=== PATIENT | male | born 1990 | race African-American/Black ===

== ENCOUNTER 2017-02-26 17:51 | Emergency (ER) | payer SELFPAY | END 2017-02-26 18:40 | disposition left against medical advice (07) | LOC: ERS 17:51 | DX: Z53.21 Procedure and treatment not carried out due to patient leaving prior to being seen by health care provider (principal) ==

== ENCOUNTER 2017-02-26 18:42 | Emergency (ER) | payer SELFPAY ==
[2017-02-26] MEDS ORDERED: Ibuprofen 200 MG TAB ONE (18:57)
== END 2017-02-26 18:50 | disposition home or self-care (01) ==
LOC: SCSER 18:42
DX: K08.89 Other specified disorders of teeth and supporting structures (principal); E66.9 Obesity, unspecified; F17.210 Nicotine dependence, cigarettes, uncomplicated; J45.909 Unspecified asthma, uncomplicated
CPT/HCPCS: 99282

== ENCOUNTER 2017-03-26 05:58 | Emergency (ER) | payer SELFPAY ==
[2017-03-26] MEDS ORDERED: Ibuprofen 200 MG TAB ONE (06:13)
== END 2017-03-26 06:23 | disposition home or self-care (01) ==
LOC: SCSER 05:58
DX: K08.89 Other specified disorders of teeth and supporting structures (principal); J45.909 Unspecified asthma, uncomplicated; F17.210 Nicotine dependence, cigarettes, uncomplicated
CPT/HCPCS: 99282

== ENCOUNTER 2018-02-20 03:40 | Inpatient (IN) | payer SELFPAY ==
[2018-02-20] MEDS ORDERED: Lidocaine 1% (PF) 30 ML VIAL ONE (03:48)
[2018-02-20] MEDS ORDERED: Adacel (T-DAP) 0.5 ML VIAL ONE (03:51)
[2018-02-20] MEDS ORDERED: Midazolam HCl 2 mg/2 ml Vial ONE ×2 (03:51→05:31)
[2018-02-20] MEDS ORDERED: Ketorolac Tromethamine 30 MG/ML VIAL ONE ×2 (03:51→12:14)
[2018-02-20] MEDS ORDERED: CEFAZOLIN 1 GM VIAL ONE (04:12)
[2018-02-20 05:02] LABS: #Basophils 0.1 thou/uL (0.0-0.2); #Eosinphils 0.1 thou/uL (0.0-0.7); #Lymphocytes 1.9 thou/uL (1.20-3.40); #Monocytes 0.7 thou/uL (0.11-0.59); #Neutrophils 6.4 thou/uL (1.40-6.50); %Basophils 0.6 % (0.0-1.0); %Eosinophils 1.1 % (0.0-10.0); %Lymphocytes 20.4 % (21.0-51.0); %Monocytes 7.3 % (0.0-10.0); %Neutrophils 70.7 % (42.0-75.0); Hemoglobin 14.8 g/dL (14.0-18.0); Mean Corpuscular HGB CONC 32.4 g/dL (32.0-36.0); Mean Corpuscular Volume 92.6 fL (78.0-98.0); Mean Platelet Volume 8.6 fL (7.4-10.4); Platelet Count 204 thou/uL (130-400); RBC Distribution Width 11.4 % (11.5-14.5); Red Blood Cell (RBC) Count 4.93 mill/uL (4.70-6.10); White Blood Cell (WBC) Count 9.1 thou/uL (4.8-10.8)
[2018-02-20 05:15] LABS: ALT (SGPT) 45 U/L (8-55); AST (SGOT) 33 U/L (5-34); Albumin 3.7 g/dL (3.5-5.0); Alkaline Phosphatase 71 U/L (40-150); Anion Gap 10 mmol/L (10-20); BUN (Urea Nitrogen) 10 mg/dL (8.9-20.6); Bilirubin, Total 0.4 mg/dL (0.2-1.2); Calc. Creatinine Clearance 0 mL/min (70-130); Calcium 8.5 mg/dL (7.8-10.44); Carbon Dioxide 22 mmol/L (22-29); Chloride 113 mmol/L (98-107); Estimated GFR-MDRD Greater than 90; Globulin 2.3 g/dL (2.4-3.5); Glucose 109 mg/dL (70-105); Potassium 3.7 mmol/L (3.5-5.1); Sodium 141 mmol/L (136-145)
[2018-02-20] MEDS ORDERED: Bacitracin Zinc Ointment 30 gm TUBE ONE (05:27)
[2018-02-20] MEDS ORDERED: Bupivacaine PF 0.5% 30 ML VIAL ONE (05:27)
[2018-02-20] MEDS ORDERED: Sodium Chloride 0.9% 20 ML ONE (05:27)
[2018-02-20] MEDS ORDERED: Fentanyl 100 MCG/2 ML VIAL ONE ×5 (05:31→09:29)
--- NOTE | 2018-02-20 07:45 | RAD ---
THREE VIEWS LEFT HAND: INDICATION: Left hand injury while attempting to cook. COMPARISON: None. FINDINGS: No acute fracture or subluxation is evident. No radiopaque foreign body is noted. IMPRESSION: No acute osseous abnormality. POS: BH
[2018-02-20] MEDS ORDERED: Milk Of Magnesia 30 ML UDCUP PO PRN (08:58)
[2018-02-20] MEDS ORDERED: HYDROcodone/Acetaminophen 10/325 mg Tablet PO PRN (08:58)
[2018-02-20] MEDS ORDERED: HYDROcodone/Acetaminophen 5/325 mg Tablet PO PRN (08:58)
[2018-02-20] MEDS ORDERED: Acetaminophen 325 MG TAB PO PRN (08:58)
[2018-02-20] MEDS ORDERED: Bisacodyl 10 MG SUPP PR PRN (08:58)
[2018-02-20] MEDS ORDERED: Communication Order-Pharmacy FS SCH (09:00)
[2018-02-20] MEDS ORDERED: TETANUS AND DIPHTHERIA TOX/PF 0.5 ML DISP.SYRIN IM SCH (09:00)
[2018-02-20] MEDS ORDERED: Ketorolac Tromethamine 30 MG/ML VIAL IVP PRN (09:04)
[2018-02-20] MEDS ORDERED: Meperidine HCl/PF 25 MG/ML VIAL IM PRN (09:04)
[2018-02-20] MEDS ORDERED: Morphine 4 MG/ML VIAL ONE (11:19)
[2018-02-20] MEDS ORDERED: Succinylcholine Chloride 20 MG/ML 10 ml SYRINGE FS ONE (12:25)
[2018-02-20] MEDS ORDERED: PHENYLEPHRINE-NS 100 MCG/ML 10 ML SYRINGE ONE (12:25)
[2018-02-20] MEDS ORDERED: ePHEDrine/0.9% NaCl/PF SYRINGE 50 mg/10 ml ONE (12:25)
[2018-02-20] MEDS ORDERED: Lidocaine 1% PF 5 ML VIAL ONE (12:25)
[2018-02-20] MEDS ORDERED: Glycopyrrolate 0.2 MG/ML 5 ML SYRINGE ONE (12:25)
[2018-02-20] MEDS ORDERED: PROPOFOL 200 MG/20 ML VIAL ONE (12:25)
[2018-02-20] MEDS: Morphine 4 MG/ML VIAL SLOW IVP PRN ×3 (13:04→20:51)
[2018-02-20] MEDS ORDERED: VANCOMYCIN IVPB PRN (13:15)
[2018-02-20] MEDS: Ondansetron PF 4 MG/2 ML Vial IV PRN ×2 (13:55→20:51)
[2018-02-20 14:17] VITALS: BMI 31.0
[2018-02-20] MEDS: Aspirin 81 mg Enteric Coated Tablet PO SCH ×2 (14:53→20:53)
--- NOTE | 2018-02-20 15:18 | PDOC.PN ---
- Subjective Encounter Start Date: 02/20/18 Encounter Start Time: 14:00 Subjective: no sob or chest pain or palpitations -: is oriented well, no cough or fever - Objective MAR Reviewed: Yes Vital Signs & Weight: Vital Signs (12 hours) Temp Pulse Resp BP Pulse Ox 02/20/18 12:55 97.6 F 81 20 118/75 97 Weight Weight 210 lb Result Diagrams: 02/20/18 04:44 02/20/18 04:44 Phys Exam - Physical Examination HEENT: PERRLA, moist MMs Neck: no JVD, supple Respiratory: no wheezing, no rales Cardiovascular: RRR, no significant murmur Gastrointestinal: soft, non-tender, positive bowel sounds Musculoskeletal: no edema, pulses present left forearm/hand in dressing Neurological: non-focal, moves all 4 limbs Psychiatric: normal affect, A&O x 3 Dx/Plan (1) Laceration of left ring finger Code(s): S61.215A - LACERATION W/O FB OF L RNG FNGR W/O DAMAGE TO NAIL, INIT Status: Acute Comment: s/p repair done by (2) Heart block Code(s): I45.9 - CONDUCTION DISORDER, UNSPECIFIED Status: Acute Comment: periop episode of complete heart block, is in normal sinus now (3) Obesity (BMI 30.0-34.9) Code(s): E66.9 - OBESITY, UNSPECIFIED Status: Chronic - Plan atropine prn, on vanc -: echo to r/o structural heart disease -: lipid profile, TSH in am -: hemostable, asp bid for dvt prophylaxis -: is on multiple narcotic agents prn (morphine, meperidine, narco) * . Review of Systems - Medications/Allergies Allergies/Adverse Reactions: Allergies Allergy/AdvReac Type Severity Reaction Status Date / Time No Known Drug Allergies Allergy Verified 01/17/15 06:00 Medications: Current Medications Acetaminophen (Tylenol) 650 mg PO Q6H PRN PRN Reason: Headache/Temp >101F/Mild Pain Hydrocodone Bitart/Acetaminophen ([place] 10/325) 1 tab PO Q4H PRN PRN Reason: Moderate Pain (4-6) Hydrocodone Bitart/Acetaminophen ([place] 5/325) 1 tab PO Q4H PRN PRN Reason: Moderate Pain (4-6) Aspirin (Ecotrin) 81 mg PO BID [facility] Last Admin: 02/20/18 14:53 Dose: 81 mg Bisacodyl (Dulcolax) 10 mg [place] DAILY PRN PRN Reason: Constipation Vancomycin HCl 1 gm/ Device 200 mls @ 200 mls/hr IVPB Q12HR [facility]ESHAM Ketorolac Tromethamine (Toradol) 30 mg IVP Q6H PRN PRN Reason: Mild Pain (1-3) Stop: 02/25/18 09:05 Last Admin: 02/20/18 14:54 Dose: 30 mg Magnesium Hydroxide (Milk Of Magnesium) 30 ml PO DAILY PRN PRN Reason: Constipation Meperidine HCl (Demerol) 25 mg IM Q6H PRN PRN Reason: Severe Pain (7-10) Miscellaneous Information (Communication Order-Pharmacy) 1 each FS ONE [facility] Stop: 03/02/18 09:01 Miscellaneous Medication (Pharmacy To Dose) 1 each IVPB PRN PRN PRN Reason: Pharmacy to dose Morphine Sulfate (Morphine) 4 mg SLOW IVP Q2H PRN PRN Reason: Severe Pain (7-10) Last Admin: 02/20/18 13:04 Dose: 4 mg Ondansetron HCl (Zofran) 4 mg IV Q6H PRN PRN Reason: Nausea Last Admin: 02/20/18 13:55 Dose: 4 mg Sodium Chloride (Flush - Normal Saline) 10 ml IVF PRN PRN PRN Reason: Saline Flush Tramadol HCl (Ultram) 100 mg PO Q6H PRN PRN Reason: Moderate Pain (4-6)
[2018-02-20] MEDS ORDERED: Atropine Sulfate 1 mg/10 ml Syringe IVP PRN (15:21)
[2018-02-20] MEDS ORDERED: PROVENTIL INHALER 6.7 G (200 INHALATIONS) INH PRN (16:44)
--- NOTE | 2018-02-20 16:54 | EKG ---
Test Reason : POST OP Blood Pressure : / mmHG Vent. Rate : 097 BPM Atrial Rate : 097 BPM P-R Int : 170 ms QRS Dur : 096 ms QT Int : 358 ms P-R-T Axes : 044 045 047 degrees QTc Int : 454 ms Normal sinus rhythm Normal ECG When compared with ECG of 20-FEB-2018 04:41, (Unconfirmed) Incomplete right bundle branch block is no longer Present Confirmed by GABINO WILLIAMSON, SAbiodun ([id number]) on 02/20/2018 4:53:30 PM Referred By: ZEE Confirmed By:DR. Jorge A LLOYD MD
[2018-02-20] MEDS ORDERED: Nicotine 21 MG PATCH TOP SCH (20:00)
[2018-02-20] MEDS: traMADol HCl 50 MG TAB PO PRN ×2 (20:52→23:46)
[2018-02-20] MEDS ORDERED: Vancomycin HCl 1 GM in Premix Bag 1 BAG IVPB SCH (21:00)
--- NOTE | 2018-02-21 01:20 | CON ---
DATE OF CONSULTATION: 02/20/2018 HISTORY OF PRESENT ILLNESS: Leno Low is a 27-year-old black male who was falling and got his left ring finger caught on a counter top and sustained significant laceration and avulsion. He underwent operative repair of this and during the procedure or afterwards, he was reported to have complete heart block. There is no documentation of this on the chart. The patient denies never having any lightheadedness, dizziness, syncope or seizures. He denies any chest pain or shortness of breath. PAST MEDICAL HISTORY: No history of hypertension, diabetes or hypercholesterolemia. MEDICATIONS: None. ALLERGIES: None. OPERATIONS: Repair of left ring finger injury. SOCIAL HISTORY: Smokes one half pack per day. He occasionally drinks. FAMILY HISTORY: Negative for coronary artery disease. REVIEW OF SYSTEMS: Unremarkable except as noted above. PHYSICAL EXAMINATION: VITAL SIGNS: Blood pressure 119/62, pulse 69. HEENT: PERRL. NECK: Supple. CHEST: Clear. CARDIAC: S1 and S2 are normal without any S3, S4 or murmurs. ABDOMEN: Obese. Normal bowel sounds, no tenderness. EXTREMITIES: Revealed no clubbing, cyanosis, or edema. NEUROLOGIC: Grossly intact. SKIN: Warm and dry. LABORATORY DATA: EKG revealed normal sinus rhythm and is unremarkable. CBC is unremarkable. Sodium 145, potassium 3.7, chloride 113, carbon dioxide 22, BUN 10, creatinine 0.88. IMPRESSION: 1. Reported complete heart block; however, there is no documentation of this on the chart. 2. Mobitz type I, second degree AV block has been documented. 3. Left ring finger trauma. 4. Obesity. 5. Smoker. PLAN: Request will be made for documentation of the complete heart block. He has been documented to have Mobitz type I second degree AV block (Wenckebach) which is a benign rhythm and requires no treatment. Echocardiogram will be performed. MARK
[2018-02-21] MEDS: Morphine 4 MG/ML VIAL SLOW IVP PRN ×3 (02:33→10:04)
[2018-02-21 05:52] LABS: Cardiac Risk 6.6 (Less than 4.5)
[2018-02-21 07:30] VITALS: BP 104/72; TEMP 97.8
[2018-02-21] MEDS: Aspirin 81 mg Enteric Coated Tablet PO SCH (08:00)
[2018-02-21] MEDS: Ondansetron PF 4 MG/2 ML Vial IV PRN (10:04)
--- NOTE | 2018-02-21 10:35 | PDOC.PN ---
- Subjective Encounter Start Date: 02/21/18 Encounter Start Time: 10:30 Subjective: no chest pain or palpitations or sob -: a bit nauseous likely from meds - Objective MAR Reviewed: Yes Vital Signs & Weight: Vital Signs (12 hours) Temp Pulse Resp BP Pulse Ox 02/21/18 08:00 98 02/21/18 07:29 97.8 F 73 16 104/72 98 02/21/18 03:23 96.8 F L 66 18 104/65 95 02/21/18 02:38 100 02/21/18 00:00 70 20 110/70 98 Weight Weight 210 lb I&O: 02/20/18 02/21/18 02/22/18 06:59 06:59 06:59 Intake Total 1354 Balance 1354 Result Diagrams: 02/20/18 04:44 02/20/18 04:44 Phys Exam - Physical Examination HEENT: PERRLA, moist MMs Neck: no JVD, supple Respiratory: no wheezing, no rales Cardiovascular: RRR, no significant murmur Gastrointestinal: soft, non-tender, positive bowel sounds Musculoskeletal: no edema, pulses present left forearm and hand in dressing Neurological: non-focal, moves all 4 limbs Psychiatric: normal affect, A&O x 3 Dx/Plan (1) Laceration of left ring finger Code(s): S61.215A - LACERATION W/O FB OF L RNG FNGR W/O DAMAGE TO NAIL, INIT Status: Acute Comment: s/p repair done by (2) Heart block Code(s): I45.9 - CONDUCTION DISORDER, UNSPECIFIED Status: Acute Comment: periop episode of complete heart block, is in normal sinus now (3) Obesity (BMI 30.0-34.9) Code(s): E66.9 - OBESITY, UNSPECIFIED Status: Chronic - Plan robinul induced complete heart block resolved -: echo prior to discharge -: may dc home if ok with -: is on vanc, may switch to oral meds per 's choice -: dc all narcotics due to intractable nausea, phenergan prn * . Review of Systems - Medications/Allergies Allergies/Adverse Reactions: Allergies Allergy/AdvReac Type Severity Reaction Status Date / Time No Known Drug Allergies Allergy Verified 01/17/15 06:00 Medications: Current Medications Acetaminophen (Tylenol) 650 mg PO Q6H PRN PRN Reason: Headache/Temp >101F/Mild Pain Hydrocodone Bitart/Acetaminophen ([place] 10/325) 1 tab PO Q4H PRN PRN Reason: Moderate Pain (4-6) Last Admin: 02/20/18 18:46 Dose: 1 tab Hydrocodone Bitart/Acetaminophen ([place] 5/325) 1 tab PO Q4H PRN PRN Reason: Moderate Pain (4-6) Albuterol Sulfate (Proventil Hfa) 2 puff INH Q6H PRN PRN Reason: HEARTRATE SUSTAINED 40'S >5MIN Aspirin (Ecotrin) 81 mg PO BID [facility] Last Admin: 02/21/18 08:00 Dose: 81 mg Atropine Sulfate (Atropine) 1 mg IVP Q5MIN PRN PRN Reason: heart rate <30 Bisacodyl (Dulcolax) 10 mg [place] DAILY PRN PRN Reason: Constipation Vancomycin HCl 2 gm/ Sodium (Chloride) 500 mls @ 250 mls/hr IVPB 0700,1500, 2300 [facility] Last Admin: 02/21/18 06:46 Dose: 500 mls Ketorolac Tromethamine (Toradol) 30 mg IVP Q6H PRN PRN Reason: Mild Pain (1-3) Stop: 02/25/18 09:05 Last Admin: 02/20/18 14:54 Dose: 30 mg Magnesium Hydroxide (Milk Of Magnesium) 30 ml PO DAILY PRN PRN Reason: Constipation Meperidine HCl (Demerol) 25 mg IM Q6H PRN PRN Reason: Severe Pain (7-10) Miscellaneous Information (Communication Order-Pharmacy) 1 each FS ONE [facility] Stop: 03/02/18 09:01 Miscellaneous Medication (Pharmacy To Dose) 1 each IVPB PRN PRN PRN Reason: Pharmacy to dose Morphine Sulfate (Morphine) 4 mg SLOW IVP Q2H PRN PRN Reason: Severe Pain (7-10) Last Admin: 02/21/18 10:04 Dose: 4 mg Nicotine (Nicoderm Patch) 21 mg TOP Q24HR [facility] Last Admin: 02/20/18 20:52 Dose: 21 mg Ondansetron HCl (Zofran) 4 mg IV Q6H PRN PRN Reason: Nausea Last Admin: 02/21/18 10:04 Dose: 4 mg Sodium Chloride (Flush - Normal Saline) 10 ml IVF PRN PRN PRN Reason: Saline Flush Last Admin: 02/21/18 06:47 Dose: 10 ml Tramadol HCl (Ultram) 100 mg PO Q6H PRN PRN Reason: Moderate Pain (4-6) Last Admin: 02/20/18 23:46 Dose: 100 mg
[2018-02-21] MEDS ORDERED: Promethazine HCl 25 MG/ML VIAL IM/IV PRN (10:37)
[2018-02-21] MEDS: traMADol HCl 50 MG TAB PO PRN (12:25)
--- NOTE | 2018-02-21 20:23 | DIS ---
DATE OF DISCHARGE: 02/20/2018 DATE OF DISCHARGE: 02/21/2018 DISCHARGE DISPOSITION: To home. PRIMARY DISCHARGE DIAGNOSES: Left ring finger laceration, status post repair by Dr. García; comple te heart block due to medications during perioperative, currently in sinus rhythm and stable; obesity . PROCEDURES DONE DURING HOSPITALIZATION: The patient has had left hand 3-view x-rays done showed no a cute osseous abnormality. She has had a repair of her laceration of left ring finger by Dr. García in the OR. H&H 14 and 45, platelet count 204. BUN and creatinine 10 and 0.8. Total cholesterol 13 1, triglycerides 175, LDL 76. TSH 1.53. DISCHARGE MEDICATIONS: Bactrim 1 tab twice daily for 5 days, Phenergan p.r.n., [place] p.r.n. ALLERGIES: No known drug allergies. INPATIENT CONSULTS: Dr. Saha for Cardiology. [facility] dung for comanagement of medical issue s. BRIEF COURSE DURING HOSPITALIZATION: Patient initially came to ER with injury to left hand ring fing er at home. She was taken to OR for repair of the same by Dr. García. Periop, patient was found t o have had complete heart block, likely due to Robinul neuromuscular block reversal agent. In view o f this, she was placed under telemetry for close monitoring. All through her stay in telemetry, the patient was in sinus rhythm. She has not had any untoward arrhythmias. Echo with 2D Doppler has bee n done and the official results are pending. She has been cleared for discharge and needs to follow up with Dr. Saha in the outpatient setting. She needs to follow up with Dr. García as advised. Please see a [id number] documentation on [employer] for the day of discharge.
[2018-02-22] MEDS ORDERED: Aspirin 81 mg Enteric Coated Tablet PO SCH (09:00)
--- NOTE | 2018-02-23 21:18 | OP ---
DATE OF SURGERY: 02/20/2018 PREOPERATIVE DIAGNOSES: 1. Full thickness skin loss 3 x 2 cm of left ring finger. 2. There is nerve injury, ulnar digital nerve of left ring finger. 3. Intact radial neurovascular bundle. PROCEDURES PERFORMED: 1. Debridement of wound and the final techniques. A. Instrumentation of [place] blade, tenotomy scissors, Pulsavac irrigation. B. Technique is incisional. C. Depth down to and including deep tendon and fat. D. No gross infection seen, but only complete loss of skin, loss over 3 x 2 cm area. 2. Cross finger flap from the long, ring into the ring finger 3 x 2 cm. 3. Full-thickness skin graft to the long finger donor site, 3 x 2 cm. BLOOD LOSS: 25 mL. TOURNIQUET TIME: 36 minutes. FINDINGS: 1. A 50% longitudinal laceration of flexor digitorum profundus. 2. Neurovascular bundle intact in the radial aspect. 3. Laceration partial seen at the distal radius ulnar digital nerve. DESCRIPTION OF PROCEDURE: After successful general endotracheal anesthesia, the limb was prepped and draped. The patient had the timeout performed appropriately, the anesthesia was general and excelle nt, and timeout was done after prepped and draped. We then exsanguinated the limb and inflated tourn iquet to 250 mmHg pressure where we remained for 36 minutes. We then extended the incision approxima tely a 5 mm distal and proximal, which revealed that he truly had a large 3 x 1.5 cm of complete full -thickness skin loss with longitudinal laceration of flexor digitorum profundus. We then debrided th e wound technique listed above, irrigated with 3 liters normal saline, and then we were able to visua lize a longitudinal repair of the flexor pollicis longus. We then repaired this with interrupted 4-0 Prolene suture. Multiple [id number] and the longitudinal tear on all sides. We then performe d a neuroplasty, where we found that the radial and digital neurovascular bundle was intact and 2 x 3 . Then, we were able to debride the wound edges using techniques listed above, saw the defect at the re pair of the tendon, and now we felt we had a good bleeding granulation bed, so we decided that we cou ld not close this primarily because it was so large, sewed cross finger flap from the left long finge r to the ring finger, obliquely oriented to make sure that it matches the area to which would be sutu red and also to make sure that there were no constrictive elements of the flap. I raised a flap, pre operative check for bleeding, had excellent bleeding when it was inset and this was done using a 4-0 nylon. Debridement completed out and cross finger flap applied, the patient was now prepared for the flap to be attached. We then set appropriately, and we were able to place it all the way on the side of the ring finger opposite to the long finger. No undue tension was seen. No excessive flexion, wa s assumed and then we deflated the tourniquet and confirmed the pink nature of the graft. The donor site was then covered with a full-thickness skin graft harvested from patient's antecubital fossa usi ng elliptical technique closed with deep running subcutaneous suture and a 4-0 nylon. The patient th en had the excellent pink color to the digits, donor recipient as well as the new graft and the patie nt left the operating room without evidence of anesthetic or operative complication and appropriate u lnar gutter splint for protection.
--- NOTE | 2018-02-25 15:37 | EKG ---
Test Reason : Blood Pressure : / mmHG Vent. Rate : 086 BPM Atrial Rate : 086 BPM P-R Int : 170 ms QRS Dur : 094 ms QT Int : 356 ms P-R-T Axes : 042 009 029 degrees QTc Int : 426 ms Normal sinus rhythm Incomplete right bundle branch block Borderline ECG Confirmed by ADDY PAULA ([id number]), state editor HORTENCIA LYNCH ([id number]) on 02/25/2018 3:37:05 PM Referred By: Confirmed By:ADDY PAULA
== END 2018-02-21 12:46 | disposition home or self-care (01) | DRG 577 ==
LOC: ERS 03:40 → SDC/OP 06:00 → ERS 06:07 → 2NO 08:58
PROVIDERS: ADMIT Orthopaedic Surgery Hand Surgery; ATTEND Orthopaedic Surgery Hand Surgery
PROC: 0HRGX73 Replacement of Left Hand Skin with Autologous Tissue Substitute, Full Thickness, External Approach (ICD-10-PCS; principal; 2018-02-20)
PROC: 0LB80ZZ Excision of Left Hand Tendon, Open Approach (ICD-10-PCS; 2018-02-20)
PROC: 0LQ80ZZ Repair Left Hand Tendon, Open Approach (ICD-10-PCS; 2018-02-20)
PROC: 0HBEXZZ Excision of Left Lower Arm Skin, External Approach (ICD-10-PCS; 2018-02-20)
DX: S61.215A Laceration without foreign body of left ring finger without damage to nail, initial encounter (principal); I44.2 Atrioventricular block, complete; W19.XXXA Unspecified fall, initial encounter; Y92.009 Unspecified place in unspecified non-institutional (private) residence as the place of occurrence of the external cause; F12.10 Cannabis abuse, uncomplicated; F17.210 Nicotine dependence, cigarettes, uncomplicated; E66.9 Obesity, unspecified; Z68.31 Body mass index [BMI] 31.0-31.9, adult
CPT/HCPCS: 26350; 36415; 80053; 80061; 84443; 85025; 90471; 90715; 93005; 93010; 93306; 96365; 96374; 96375; 99406; G0390; J0690; J1885; J2001; J2250; J2270; J2405; J2704; J3010; J3370; J3490; J7050; S0020

== ENCOUNTER 2018-02-21 13:37 | Emergency (ER) | payer SELFPAY ==
[2018-02-21] MEDS ORDERED: Ondansetron ODT 8 MG TAB ONE (14:10)
== END 2018-02-21 14:34 | disposition home or self-care (01) ==
LOC: ERS 13:37
DX: R11.2 Nausea with vomiting, unspecified (principal); T50.905A Adverse effect of unspecified drugs, medicaments and biological substances, initial encounter; J45.909 Unspecified asthma, uncomplicated; F17.210 Nicotine dependence, cigarettes, uncomplicated; E66.9 Obesity, unspecified
CPT/HCPCS: 99284

== ENCOUNTER 2018-03-17 11:07 | Day surgery (SDC) | payer SELFPAY ==
[2018-03-16 15:34] VITALS: BMI 42.8
[2018-03-17] MEDS ORDERED: Fentanyl 100 MCG/2 ML VIAL ONE ×3 (12:38→16:21)
[2018-03-17] MEDS ORDERED: PROPOFOL 200 MG/20 ML VIAL ONE (14:19)
[2018-03-17] MEDS ORDERED: Dexamethasone 20 MG/5 ML VIAL ONE (14:19)
[2018-03-17] MEDS ORDERED: Lidocaine 1% PF 5 ML VIAL ONE (14:19)
[2018-03-17] MEDS ORDERED: PHENYLEPHRINE-NS 100 MCG/ML 10 ML SYRINGE ONE (14:19)
[2018-03-17] MEDS ORDERED: Ondansetron HCl/PF 4 MG/2 ML Vial ONE (14:19)
[2018-03-17] MEDS ORDERED: ePHEDrine/0.9% NaCl/PF SYRINGE 50 mg/10 ml ONE (14:19)
[2018-03-17] MEDS ORDERED: Bupivacaine PF 0.5% 30 ML VIAL ONE (14:33)
[2018-03-17] MEDS ORDERED: Bacitracin Zinc Ointment 30 gm TUBE ONE (14:33)
[2018-03-17] MEDS ORDERED: CEFAZOLIN/Water 2 GM/20 ML SYRINGE ONE (14:39)
[2018-03-17] MEDS ORDERED: Midazolam HCl 2 mg/2 ml Vial ONE (14:40)
[2018-03-17] MEDS ORDERED: HYDROmorphone 2 MG/ML VIAL ONE (15:44)
[2018-03-17] MEDS ORDERED: Ketorolac Tromethamine 30 MG/ML VIAL ONE ×2 (16:18→16:22)
[2018-03-17] MEDS ORDERED: Promethazine HCl 25 MG/ML VIAL ONE (17:22)
--- NOTE | 2018-03-17 23:10 | OP ---
DATE OF SURGERY: 03/17/2018 PREOPERATIVE DIAGNOSIS: Cross finger flap, left ring finger. Cross finger flap viable skin graft over the long finger donor site, ring finger septic is exce llent. PROCEDURE PERFORMED: 1. Separation of cross finger flap. 2. Removal sutures under anesthesia. INJECTABLE: 20 mL of 0.5% Marcaine splitting between the two incisions. The flap was viable even af ter release. DESCRIPTION OF PROCEDURE: After successful general endotracheal, the limb was prepped and draped. Bobby ricketts then did a time out, injected each metacarpophalangeal joint with 10 mL of 0.5% Marcaine for a tota l of 20 and the patient then had the cross finger flap identified, . We saw where it was most v ulnerable and we then cut to avoid the size of vulnerability. Once this was done, we then released t he flap under direct visualization with a [place] blade knife, we took the edges on each side and inse rted it into the main wound and/or flap with 4-0 nylon interrupted simple pattern. There was no unex posed fat or dermis after this procedure, and the patient left the operating with bulky dressing appl ied, finger tube gauze without evidence of anesthetic or operative complication.
== END 2018-03-17 18:30 | disposition home or self-care (01) ==
LOC: SDC 11:07
PROVIDERS: ATTEND Orthopaedic Surgery Hand Surgery
PROC: 0HXGXZZ Transfer Left Hand Skin, External Approach (ICD-10-PCS; principal; 2018-03-17)
DX: T14.8XXA Other injury of unspecified body region, initial encounter (principal); Z98.890 Other specified postprocedural states
CPT/HCPCS: 96372; 96374; 96375; J1100; J1170; J1885; J2001; J2250; J2405; J2550; J2704; J3010; S0020

== ENCOUNTER 2021-12-13 13:31 | Emergency (ER) | payer OTHER, SELFPAY ==
[2021-12-13] MEDS ORDERED: Lidocaine 1% w/Epinephrine 1:200K 30 ML VIAL FS SCH (15:15)
[2021-12-13] MEDS ORDERED: Boostrix 0.5 ML (Tdap) VIAL ONE (15:30)
[2021-12-13] MEDS ORDERED: Bacitracin 1 PK ONE (15:40)
== END 2021-12-13 15:45 ==
LOC: ERS 13:31
DX: S01.112A Laceration without foreign body of left eyelid and periocular area, initial encounter (principal); Z23 Encounter for immunization; Y04.8XXA Assault by other bodily force, initial encounter
CPT/HCPCS: 12013; 90471; 90715

== ENCOUNTER 2025-04-07 21:29 | Inpatient (IN) | payer OTHER, SELFPAY ==
[2025-04-07] MEDS ORDERED: Acetaminophen 500 MG TAB ONE (23:01)
[2025-04-07] MEDS ORDERED: Ondansetron PF 4 MG/2 ML Vial ONE (23:24)
[2025-04-07] MEDS ORDERED: Ketorolac Tromethamine 30 MG (1 mL) VIAL ONE (23:37)
[2025-04-07 23:40] LABS: #Basophils 0.04 10x3/uL (0.0-0.2); #Eosinophils Less than 0.03 10x3/uL (0.0-0.7); #Monocytes 1.26 10x3/uL (0.11-0.59); #Neutrophils 14.86 10x3/uL (1.40-6.50); %Basophils 0.2 % (0.0-1.0); %Eosinophils 0.1 % (0.0-10.0); %Lymphocytes 10.8 % (21.0-51.0); %Monocytes 6.9 % (0.0-10.0); %Neutrophils 81.6 % (42.0-75.0); Hematocrit 49.0 % (42.0-52.0); Hemoglobin 15.8 g/dL (14.0-18.0); Mean Corpuscular Hemoglobin 29.6 pg (27.0-31.0); Mean Corpuscular Volume 91.8 fL (78.0-98.0); Platelet Count 177 10x3/uL (130-400); Red Blood Cell (RBC) Count 5.34 mill/uL (4.70-6.10); White Blood Cell (WBC) Count 18.22 10x3/uL (4.8-10.8)
[2025-04-07 23:55] LABS: ALT (SGPT) 27 U/L (Less than 45); AST (SGOT) 31 U/L (11-34); Albumin 4.3 g/dL (3.1-4.5); Alkaline Phosphatase 81 U/L (40-110); Anion Gap 16 mmol/L (10-20); BUN (Urea Nitrogen) 10 mg/dL (8.9-20.6); Bilirubin, Total 1.1 mg/dL (0.3-1.2); Calc. Creatinine Clearance 0 mL/min (70-130); Calcium 9.6 mg/dL (7.8-10.44); Carbon Dioxide 21 mmol/L (22-29); Chloride 103 mmol/L (98-107); Globulin 3.7 g/dL (2.4-3.5); Glucose 94 mg/dL (70-105); Potassium 4.2 mmol/L (3.5-5.1); Sodium 136 mmol/L (136-145)
[2025-04-08] MEDS ORDERED: cefTRIAXone (ROCEPHIN) 2 GM VIAL ONE (01:05)
[2025-04-08 03:03] LABS: MONO NEGATIVE CONTROL ZONE White (Negative) (White); MONO POSITIVE CONTROL Pink Line (Positive) (PINK/RED); Mononucleosis NEGATIVE (NEGATIVE)
[2025-04-08 04:56] VITALS: BMI 45.1
[2025-04-08 05:10] LABS: HIV (1/2) Antibody/Antigen NONREACTIVE (NonReactive); HIV 1/2 INDEX 0.06 S/CO (<1.00)
[2025-04-08] MEDS ORDERED: Ondansetron PF 4 MG/2 ML Vial IVP PRN (06:03)
[2025-04-08] MEDS: Acetaminophen 325 MG TAB PO PRN (06:26)
[2025-04-08] MEDS: Vancomycin (BATCH) 2.5 GM in Premix 1 BAG IVPB SCH (06:37)
[2025-04-08 08:50] LABS: Bacteria/HPF None Seen HPF (None Seen); Glucose, Urine (Dipstick) Normal (Negative); Leukocyte 250 Leu/uL (Negative); Protein, Urine (Dipstick) 20 mg/dL (Neg-Trace); RBC/HPF None Seen HPF (0-3); Specific Gravity, Urine 1.046 (1.002-1.036); WBC/HPF Greater than 50 HPF (0-3)
[2025-04-08] MEDS ORDERED: Iopamidol-370 76% 500 ML MDV (1 ML CHARGE) ONE (10:56)
[2025-04-08] MEDS: Vancomycin 1.5 GM / NS 500 ML VIAL-2-BAG IVPB SCH (15:20)
[2025-04-09 05:32] LABS: #Basophils 0.03 10x3/uL (0.0-0.2); #Eosinophils 0.04 10x3/uL (0.0-0.7); #Monocytes 1.03 10x3/uL (0.11-0.59); #Neutrophils 10.60 10x3/uL (1.40-6.50); %Basophils 0.2 % (0.0-1.0); %Eosinophils 0.3 % (0.0-10.0); %Lymphocytes 18.8 % (21.0-51.0); %Monocytes 7.1 % (0.0-10.0); %Neutrophils 73.3 % (42.0-75.0); Hematocrit 44.0 % (42.0-52.0); Hemoglobin 14.3 g/dL (14.0-18.0); Mean Corpuscular Hemoglobin 30.0 pg (27.0-31.0); Mean Corpuscular Volume 92.2 fL (78.0-98.0); Platelet Count 159 10x3/uL (130-400); Red Blood Cell (RBC) Count 4.77 mill/uL (4.70-6.10); White Blood Cell (WBC) Count 14.46 10x3/uL (4.8-10.8)
[2025-04-09 05:45] LABS: Vancomycin, Random 18.1 ug/mL (See Comment)
[2025-04-09 05:46] LABS: Anion Gap 10 mmol/L (10-20); BUN (Urea Nitrogen) 7 mg/dL (8.9-20.6); Calc. Creatinine Clearance 270 mL/min (70-130); Calcium 8.9 mg/dL (7.8-10.44); Carbon Dioxide 24 mmol/L (22-29); Chloride 105 mmol/L (98-107); Glucose 100 mg/dL (70-105); Potassium 4.2 mmol/L (3.5-5.1); Sodium 135 mmol/L (136-145)
[2025-04-09] MEDS: Ibuprofen 600 MG TAB PO PRN (15:50)
[2025-04-09] MEDS: Clindamycin/D5W 600 MG in Premix 1 BAG IVPB SCH (17:54)
[2025-04-09] MEDS ORDERED: Vancomycin 1.5 GM / NS 500 ML VIAL-2-BAG IVPB SCH (18:00)
[2025-04-10 05:41] LABS: #Basophils 0.03 10x3/uL (0.0-0.2); #Eosinophils 0.22 10x3/uL (0.0-0.7); #Monocytes 0.87 10x3/uL (0.11-0.59); #Neutrophils 5.21 10x3/uL (1.40-6.50); %Basophils 0.3 % (0.0-1.0); %Eosinophils 2.4 % (0.0-10.0); %Lymphocytes 31.1 % (21.0-51.0); %Monocytes 9.4 % (0.0-10.0); %Neutrophils 56.4 % (42.0-75.0); Hematocrit 46.9 % (42.0-52.0); Hemoglobin 14.8 g/dL (14.0-18.0); Mean Corpuscular Hemoglobin 29.6 pg (27.0-31.0); Mean Corpuscular Volume 93.8 fL (78.0-98.0); Platelet Count 176 10x3/uL (130-400); Red Blood Cell (RBC) Count 5.00 mill/uL (4.70-6.10); White Blood Cell (WBC) Count 9.24 10x3/uL (4.8-10.8)
[2025-04-10 05:51] LABS: Anion Gap 13 mmol/L (10-20); BUN (Urea Nitrogen) 10 mg/dL (8.9-20.6); Calc. Creatinine Clearance 307 mL/min (70-130); Calcium 9.1 mg/dL (7.8-10.44); Carbon Dioxide 22 mmol/L (22-29); Chloride 108 mmol/L (98-107); Glucose 97 mg/dL (70-105); Potassium 4.1 mmol/L (3.5-5.1); Sodium 139 mmol/L (136-145)
[2025-04-10 08:42] VITALS: BP 106/71; TEMP 97.6
[2025-04-11] MEDS ORDERED: PNEUMOC 20-VAL CONJ-DIP CRM/PF 0.5 ML SYRINGE IM ONE (09:00)
== END 2025-04-10 14:19 | disposition home or self-care (01) | DRG 872 ==
LOC: ERS 21:29 → T4-B 04-08 04:03 → OBSVTOIN 04-09 09:49
PROVIDERS: ADMIT Internal Medicine; ATTEND Hospitalist
DX: A41.9 Sepsis, unspecified organism (principal); Z98.890 Other specified postprocedural states; Z90.49 Acquired absence of other specified parts of digestive tract; J45.909 Unspecified asthma, uncomplicated
CPT/HCPCS: 36415; 71045; 71275; 80048; 80053; 80202; 81003; 81015; 83605; 84145; 84484; 85025; 85379; 86308; 87040; 87081; 87086; 87389; 87428; 87430; 93005; 96361; 96365; 96367; 96375; 96376; G0378; J0692; J0696; J1885; J2405; J3373; J3490; J7030; Q9967